=== PATIENT | male | born 1960 | race African-American/Black ===

== ENCOUNTER 2018-10-25 15:40 | Emergency (ER) | payer OTHER ==
[2018-10-25 16:01] VITALS: BP 158/106; PULSE 74; TEMP 98.2; BMI 22.1
--- NOTE | 2018-10-25 16:01 | PDOC ---
Rapid Medical Evaluation Medical Evaluation: I have performed a brief in-person evaluation of this patient. The patient presents with a chief complaint of: hx of lung CA, syncope yesterday ; fell on left side Pertinent physical exam findings: multiple abrasions, +pain along L index finger , L knee bruise and swelling I have ordered the following: labs, ekg, xray The patient will proceed to the ED for further evaluation. 10/25/18 15:57
--- NOTE | 2018-10-25 16:35 | PDOC ---
Attending Attestation - Resident Resident Name: Thomas Braxton - ED Attending Attestation I have performed the following: I have examined & evaluated the patient, The case was reviewed & discussed with the resident, I agree w/resident's findings & plan, Exceptions are as noted - HPI HPI: 10/25/18 16:29 57y M hx of recently dx Lung CA with suspected mets currently being worked up as outpatient, presents with complaint of L leg pain, L hand pain. Pt states he was at home, heard something in the backyard, stood u pand sprinted to investiguate and felt like his 'leg didnt work', and fell down on his L side with L hand pain and difficult bneding his 2nd and 3rd digit on his L hand. Pt does not think he hit is head nor passed out. Pt denie sany associated cp, sob , neck pain, back pain, abd pain, focal numbness/tingling/weakness. GENERAL: The patient is awake, alert, and fully oriented, Nontoxic - in no acute distress. HEAD: Normocephalic, atraumatic. EYES: extraocular movements intact, sclera anicteric, conjunctiva clear. ENT: Normal voice, Moist mucous membranes. NECK: Normal range of motion, supple, no ttp on cervical/trhoacic/lumbar spine LUNGS: Breath sounds equal, clear to auscultation bilaterally. No wheezes, no rhonchi, no rales. HEART: Regular rate and rhythm, normal S1 and S2 without murmur, rub or gallop. ABDOMEN: Soft, nontender, No guarding, no rebound. No CVA tenderness EXTREMITIES: +L hand: ttp to 2nd3rd pip/mcp, +abrasion on L lateral epicondyle without focal bony ttp, normal rom of shoulder/elbow/wrist. +thompsons test on L calf (no plantarflexion with calf squeeze). abrasion on l knee. contusion/ abrasion on L hip, but normal ROM of L hip, L knee. NEUROLOGICAL: No facial assymetry, Normal speech, moving all 4 extremities spontaeneously and symmetrically PSYCH: Normal mood, normal affect. SKIN: Warm, Dry, normal turgor, suspect near complete achilles tendon rupture will obtain xray of L hand to r/o fx analgesia - Medical Decision Making 10/25/18 18:58 xrays negative for fracture will consult ortho Heart Score/ECG Review - ECG Impressions Comment:: 10/25/18 17:28 Twelve-lead EKG was performed and reviewed by me. There is normal sinus rhythm with a normal rate. Rate of 61 LVH
[2018-10-25] MEDS ORDERED: morphine CARPU-JECT 4 MG/1 ML DISP.SYRIN IVPUSH ONE (17:05)
[2018-10-25] MEDS ORDERED: morphine SULFATE 4 MG/ML VIAL ONE (17:26)
[2018-10-25 17:36] LABS: BASO % 0.8 % (0-2.0); EOS % 3.9 % (0-4.5); HEMATOCRIT 43.4 % (35.4-49); HEMOGLOBIN 14.9 GM/dL (11.7-16.9); LYMPH % 28.1 % (8-40); MCHC 34.2 g/dl (32.0-35.9); MEAN CELL VOLUME 93.6 fl (80-96); MEAN PLT VOLUME 9.3 fl (7.5-11.1); MONO % 13.4 % (3.8-10.2); NEUT % 53.8 % (42.8-82.8); PLATELET COUNT 188 K/MM3 (134-434); RBC 4.64 M/mm3 (4.00-5.60); RDW 13.9 % (11.9-15.9); WHITE BLOOD COUNT 7.3 K/mm3 (4.0-10.0)
[2018-10-25 18:10] LABS: ALBUMIN 3.7 g/dl (3.4-5.0); ALK PHOS 77 U/L (45-117); ANION GAP 6 MMOL/L (8-16); BILIRUBIN,TOTAL 0.6 mg/dL (0.2-1); BLOOD UREA NITROGEN 13.1 mg/dL (7-18); CALCIUM 8.8 mg/dL (8.5-10.1); CHLORIDE 104 mmol/L (98-107); CO2 31 mmol/L (21-32); GLUCOSE,RANDOM 95 mg/dL (74-106); POTASSIUM 4.2 mmol/L (3.5-5.1); SGOT/AST 31 U/L (15-37); SGPT/ALT 39 U/L (13-61); SODIUM 141 mmol/L (136-145); TOT PROT 6.9 g/dl (6.4-8.2)
--- NOTE | 2018-10-25 19:15 | PDOC ---
History of Present Illness - General Chief Complaint: Injury Stated Complaint: SLIP AND FALL Time Seen by Provider: 10/25/18 15:57 - History of Present Illness Initial Comments: 10/25/18 19:15 57m with pmh of lung cancer presents to the ed after fall last night while running away from "a growling beast, probably a racoon" As he ran away he felt a pop to his left ankle and collapse unable to make a single step. Was unable to get back up, carried home by his cousin. Decided to come today since it didn't get better. Denies loss of sensation. Able to move toes, cant range ankle. Did not lose consciousness or hit his head. Past History - Past Medical History Allergies/Adverse Reactions: Allergies Allergy/AdvReac Type Severity Reaction Status Date / Time No Known Allergies Allergy Verified 10/25/18 16:01 COPD: No - Suicide/Smoking/Psychosocial Hx Smoking History: Current every day smoker Number of Cigarettes Smoked Daily: 1 Information on smoking cessation initiated: No Hx Alcohol Use: No Drug/Substance Use Hx: Yes (MARIJUANA) Review of Systems - Review of Systems Able to Perform ROS?: Yes Is the patient limited Bulgarian proficient: No Constitutional: No: Symptoms Reported HEENTM: No: Symptoms Reported Respiratory: No: Symptoms reported Cardiac (ROS): No: Symptoms Reported ABD/GI: No: Symptoms Reported Musculoskeletal: Yes: See HPI Integumentary: No: Symptoms Reported Neurological: No: Symptoms reported *Physical Exam - Vital Signs Last Vital Signs Temp Pulse Resp BP Pulse Ox 98.2 F 74 16 158/106 H 99 10/25/18 15:56 10/25/18 15:56 10/25/18 15:56 10/25/18 15:56 10/25/18 15:56 - Physical Exam General Appearance: Yes: Nourished, Appropriately Dressed. No: Apparent Distress HEENT: positive: EOMI, JAMISON Respiratory/Chest: positive: Lungs Clear, Normal Breath Sounds. negative: Chest Tender, Respiratory Distress Cardiovascular: positive: Regular Rhythm, Regular Rate, S1, S2 Gastrointestinal/Abdominal: positive: Normal Bowel Sounds, Flat. negative: Tender Extremity: positive: Normal Capillary Refill, Other (Positive Rhodse test of the left ankle./ ). negative: Normal Inspection, Normal Range of Motion Integumentary: positive: Normal Color, Dry, Warm Neurologic: positive: Fully Oriented, Alert, Normal Mood/Affect ED Treatment Course - LABORATORY CBC & Chemistry Diagram: 10/25/18 17:17 10/25/18 17:17 - ADDITIONAL ORDERS Additional order review: Laboratory Results 10/25/18 17:17 Sodium 141 Potassium 4.2 Chloride 104 Carbon Dioxide 31 Anion Gap 6 L BUN 13.1 Creatinine 1.0 Est GFR (CKD-EPI)AfAm 96.40 Est GFR (CKD-EPI)NonAf 83.18 Random Glucose 95 Calcium 8.8 Total Bilirubin 0.6 AST 31 ALT 39 Alkaline Phosphatase 77 Troponin I < 0.02 Total Protein 6.9 Albumin 3.7 10/25/18 17:17 RBC 4.64 MCV 93.6 MCHC 34.2 RDW 13.9 MPV 9.3 Neutrophils % 53.8 Lymphocytes % 28.1 Monocytes % 13.4 H Eosinophils % 3.9 Basophils % 0.8 - RADIOLOGY Radiology Studies Ordered: Category Date Time Status ANKLE & FOOT-LEFT* [RAD] Stat Radiology 10/25/18 16:36 Completed - Medications Given in the ED: ED Medications Discontinued Medications Generic Name Dose Route Start Last Admin Trade Name Purnima PRN Reason Stop Dose Admin Morphine Sulfate 4 mg 10/25/18 17:05 10/25/18 17:35 Morphine Injection - IVPUSH 10/25/18 17:06 4 mg ONCE ONE Administration Oxycodone/Acetaminophen 1 combo 10/25/18 17:10 10/25/18 18:31 Percocet 5/325 - PO 10/25/18 17:11 Not Given ONCE ONE Medical Decision Making - Medical Decision Making 10/25/18 20:14 4mg morphine for pain. Positive Rhodes sign, probable ruptured left Achilles. Spoke to Dr. Nixon, Orthopedic surgeon, who will see the patient next week. 10/25/18 20:41 Placed Posterior splint with plantarflexion at 20%, well-padded. Gave crutches, D/C with follow up. *DC/Admit/Observation/Transfer Diagnosis at time of Disposition: Achilles rupture, left - Discharge Dispostion Disposition: HOME Condition at time of disposition: Improved Decision to Admit order: No - Referrals Referrals: Jesus Jefferson [Primary Care Provider] - Rudy Nixon DO [Staff Physician] - - Patient Instructions Printed Discharge Instructions: DI for Achilles Tendon Rupture Additional Instructions: Do not bear weight to the left foot until you see Dr. Nixon. Use crutches. Call Dr. Nixon's office to set up an appointment as soon as possible. Come back to the emergency department for any new, worsening or concerning symptom. - Post Discharge Activity
--- NOTE | 2018-10-26 11:12 | EKG ---
Test Reason : Blood Pressure : / mmHG Vent. Rate : 061 BPM Atrial Rate : 061 BPM P-R Int : 158 ms QRS Dur : 104 ms QT Int : 376 ms P-R-T Axes : 068 066 046 degrees QTc Int : 378 ms NORMAL SINUS RHYTHM POSSIBLE LEFT ATRIAL ENLARGEMENT LEFT VENTRICULAR HYPERTROPHY ABNORMAL ECG WHEN COMPARED WITH ECG OF 03-AUG-2007 18:37, NO SIGNIFICANT CHANGE WAS FOUND Confirmed by Jeevan Sandra MD ([id number]) on 10/26/2018 11:12:07 AM Referred By: Confirmed By:Jeevan Sandra MD
== END 2018-10-25 20:13 | disposition home or self-care (01) ==
LOC: JER 15:40
PROC: 3E033NZ Introduction of Analgesics, Hypnotics, Sedatives into Peripheral Vein, Percutaneous Approach (ICD-10-PCS; principal; 2018-10-25)
PROC: 2W3RX1Z Immobilization of Left Lower Leg using Splint (ICD-10-PCS; 2018-10-25)
DX: S86.012A Strain of left Achilles tendon, initial encounter (principal); W18.39XA Other fall on same level, initial encounter; Y93.02 Activity, running; Y92.017 Garden or yard in single-family (private) house as the place of occurrence of the external cause; Y99.8 Other external cause status
CPT/HCPCS: 29515; 36415; 73130-TC-LT-FY; 73523-TC-FY; 73564-TC-LT-FY; 73610-TC-LT-FY; 73630-TC-LT; 80053; 84484; 85025; 93005; 93010; 96374; 99283-25

== ENCOUNTER 2020-11-29 14:29 | Emergency (ER) | payer OTHER ==
[2020-11-29 14:45] VITALS: BP 170/90; PULSE 53; TEMP 98; BMI 23.0
[2020-11-29] MEDS ORDERED: IBUPROFEN 600 MG TABLET (FP) PO ONE ×2 (15:54→15:55)
== END 2020-11-29 17:00 | disposition home or self-care (01) ==
LOC: JER 14:29 → JERFT 14:29
DX: L03.032 Cellulitis of left toe (principal)
CPT/HCPCS: 73630-TC-LT; 99284-25

== ENCOUNTER 2021-06-26 02:24 | Observation (INO) | payer OTHER ==
[2021-06-26] MEDS ORDERED: SODIUM CHLORIDE 0.9% 500 ML INFUS.BAG IV ONE (03:12)
[2021-06-26] MEDS ORDERED: ACETAMINOPHEN 1000 MG/100 ML BAG IVPB ONE (03:13)
[2021-06-26] MEDS ORDERED: ALBUTEROL SO4 HFA INHALER IH ONE ×2 (03:13→03:38)
[2021-06-26] MEDS ORDERED: LISINOPRIL 10 MG TABLET PO ONE (03:35)
[2021-06-26] MEDS ORDERED: HYDROCHLOROTHIAZIDE 25 MG TABLET (FP) PO ONE (03:36)
[2021-06-26] MEDS ORDERED: LISINOPRIL 10 MG TABLET ONE (03:38)
[2021-06-26] MEDS ORDERED: HYDROCHLOROTHIAZIDE 25 MG TABLET (FP) ONE (03:38)
[2021-06-26] MEDS ORDERED: ACETAMINOPHEN INJECTION 100 ML IVPB ONE (03:39)
[2021-06-26 03:42] LABS: EOS % 1.5 % (0-4.5); HEMATOCRIT 41.3 % (35.4-49); HEMOGLOBIN 14.1 GM/dL (11.7-16.9); LYMPH % 30.2 % (8-40); MCH 30.7 pg (25.7-33.7); MEAN CELL VOLUME 90.2 fl (80-96); MEAN PLT VOLUME 8.5 fl (7.5-11.1); MONO % 11.5 % (3.8-10.2); NEUT % 55.8 % (42.8-82.8); PLATELET COUNT 258 10^3/uL (134-434); RBC 4.58 M/mm3 (4.00-5.60); RDW 14.6 % (11.9-15.9); WHITE BLOOD COUNT 5.5 K/mm3 (4.0-10.0)
[2021-06-26 03:50] LABS: INR 0.95 (0.83-1.09); PROTHROMBIN TIME (PATIENT) 10.9 SEC (9.7-13.0)
[2021-06-26 03:53] LABS: ACTIVATED PTT 31.8 SECONDS (25.2-36.5)
[2021-06-26 04:04] LABS: ALBUMIN 4.2 g/dl (3.4-5.0); BLOOD UREA NITROGEN 11.3 mg/dL (7-18); CALCIUM 9.8 mg/dL (8.5-10.1); MAGNESIUM 2.5 mg/dL (1.8-2.4)
[2021-06-26 04:09] LABS: BILIRUBIN,TOTAL 0.3 mg/dL (0.2-1); TOT PROT 7.5 g/dl (6.4-8.2)
[2021-06-26 09:24] LABS: PH,URINE 6.5 (5.0-8.0); URINE APPEARANCE CLEAR; URINE BILIRUBIN NEGATIVE (NEGATIVE); URINE COLOR YELLOW; URINE GLUCOSE (UA) NEGATIVE (NEGATIVE); URINE KETONE NEGATIVE (NEGATIVE); URINE LEUK ESTERASE NEGATIVE (NEGATIVE); URINE NITRITE NEGATIVE (NEGATIVE); URINE PROTEIN NEGATIVE (NEGATIVE); URINE UROBILINOGEN 0.2 mg/dL (0.2-1.0)
[2021-06-26] MEDS ORDERED: amLODIPine BESYLATE 10 MG TABLET (FP) PO ONE (09:50)
[2021-06-26] MEDS ORDERED: ALBUTEROL SO4 HFA INHALER IH PRN (11:15)
[2021-06-26] MEDS ORDERED: ACETAMINOPHEN 325 MG TABLET (FP) PO PRN (13:12)
[2021-06-26] MEDS ORDERED: NITROGLYCERIN SUBLINGUAL 1/150 0.4 MG TAB SL ONE (18:38)
[2021-06-26] MEDS ORDERED: hydrALAZINE HCL 20 MG/ML VIAL IVPUSH ONE (18:51)
[2021-06-26] MEDS ORDERED: ASPIRIN 81 MG CHEWABLE TABLETS PO ONE (18:51)
[2021-06-26 20:09] VITALS: BMI 21.9
[2021-06-27 07:33] LABS: BASO % 1.4 % (0-2.0); EOS % 3.4 % (0-4.5); HEMATOCRIT 43.6 % (35.4-49); HEMOGLOBIN 14.3 GM/dL (11.7-16.9); LYMPH % 48.9 % (8-40); MCH 29.8 pg (25.7-33.7); MCHC 32.9 g/dl (32.0-35.9); MEAN CELL VOLUME 90.7 fl (80-96); MEAN PLT VOLUME 9.1 fl (7.5-11.1); MONO % 12.4 % (3.8-10.2); NEUT % 33.9 % (42.8-82.8); PLATELET COUNT 269 10^3/uL (134-434); RBC 4.81 M/mm3 (4.00-5.60); RDW 14.5 % (11.9-15.9); WHITE BLOOD COUNT 4.2 K/mm3 (4.0-10.0)
[2021-06-27 08:04] LABS: ALBUMIN 3.8 g/dl (3.4-5.0); CREATININE 1.1 mg/dL (0.55-1.3); PHOSPHOROUS 3.8 mg/dL (2.5-4.9)
[2021-06-27 08:05] LABS: BILIRUBIN,TOTAL 0.5 mg/dL (0.2-1); CALCIUM 9.5 mg/dL (8.5-10.1)
[2021-06-27 08:06] LABS: MAGNESIUM 2.4 mg/dL (1.8-2.4)
[2021-06-27] MEDS ORDERED: HYDROCHLOROTHIAZIDE 25 MG TABLET (FP) PO SCH (10:00)
[2021-06-27] MEDS ORDERED: LISINOPRIL 20 MG TABLET PO SCH (10:00)
[2021-06-27 12:11] VITALS: BP 159/96; PULSE 61; TEMP 98.7
== END 2021-06-27 15:04 | disposition home or self-care (01) ==
LOC: JER 02:24 → JERBED 05:43 → J4W 18:44
PROVIDERS: ADMIT Internal Medicine; ATTEND Nurse Practitioner Family
PROC: 3E033GC Introduction of Other Therapeutic Substance into Peripheral Vein, Percutaneous Approach (ICD-10-PCS; principal; 2021-06-26)
PROC: 3E033NZ Introduction of Analgesics, Hypnotics, Sedatives into Peripheral Vein, Percutaneous Approach (ICD-10-PCS; 2021-06-26)
DX: I11.9 Hypertensive heart disease without heart failure (principal); I43 Cardiomyopathy in diseases classified elsewhere; F41.9 Anxiety disorder, unspecified; G44.009 Cluster headache syndrome, unspecified, not intractable; J45.909 Unspecified asthma, uncomplicated; Z29.8 Encounter for other specified prophylactic measures; I16.0 Hypertensive urgency; R42 Dizziness and giddiness; F17.210 Nicotine dependence, cigarettes, uncomplicated
CPT/HCPCS: 36415; 70450-TC; 71045-TC-FY; 80053; 80061; 81003; 82550; 82553; 82607; 82746; 83036; 83735; 84100; 84484; 85025; 85610; 85730; 86780; 93005; 93010; 93306-TC; 96374; 96375; 97116-GP; 97161-GP; 99285-25; C9803-CS; G0378; U0003; U0005

== ENCOUNTER 2022-06-22 16:34 | Emergency (ER) | payer OTHER ==
[2022-06-22 16:47] VITALS: TEMP 98.9; BMI 23.6
[2022-06-22] MEDS ORDERED: EPINEPHrine 1:1,000 0.3 MG/0.3 ML SYR IM ONE (16:49)
[2022-06-22] MEDS ORDERED: methylPREDNISolone NA SUCC 125 MG/2 ML VIAL IVPUSH ONE (16:49)
[2022-06-22] MEDS ORDERED: methylPREDNISolone NA SUCC 125 MG/2 ML VIAL ONE (16:52)
[2022-06-22] MEDS ORDERED: EPINEPHrine/PF 1 MG/1 ML (1:1,000) AMPULE ONE (16:52)
[2022-06-22 18:45] VITALS: BP 167/120; PULSE 72; RESP 18
== END 2022-06-22 19:00 | disposition home or self-care (01) ==
LOC: JER 16:34
PROC: 3E023GC Introduction of Other Therapeutic Substance into Muscle, Percutaneous Approach (ICD-10-PCS; principal; 2022-06-22)
PROC: 3E033GC Introduction of Other Therapeutic Substance into Peripheral Vein, Percutaneous Approach (ICD-10-PCS; 2022-06-22)
PROC: 3E033GC Introduction of Other Therapeutic Substance into Peripheral Vein, Percutaneous Approach (ICD-10-PCS; 2022-06-22)
DX: K14.8 Other diseases of tongue (principal); R22.1 Localized swelling, mass and lump, neck; T78.40XA Allergy, unspecified, initial encounter
CPT/HCPCS: 93005; 93010; 99284-25; J0171